=== PATIENT | female | born 1945 | race Hispanic/Latino ===

== ENCOUNTER 2018-12-02 09:14 | Inpatient (IN) | payer MEDICARE, BC ==
--- NOTE | 2018-12-02 09:56 | ED PDOC ---
Arrival/HPI - General Chief Complaint: Lower Extremity Problem/Injury Historian: Patient - History of Present Illness Narrative History of Present Illness (Text): 12/02/18 09:55 73 y/o female, pmh including htn/hld/dm/duodenal ulcer, allergic to nifidipine, c/o lt knee pain and lt. knee swelling x 2 days with on fall or trauma. Aching pain, scheduled for endoscopy so told not take any nsaids, associated with swelling, no fall or trauma, no numbness or tingling, no dizziness, no change in vision, no rash, no other medical or psychological complaints. Past Medical History - Provider Review Nursing Documentation Reviewed: Yes - Cardiac Hx Hypertension: Yes - Endocrine/Metabolic Hx Diabetes Mellitus Type 2: Yes - Gastrointestinal Hx Colitis: Yes - Psychiatric Hx Substance Use: No - Surgical History Hx Cholecystectomy: Yes Hx Hysterectomy: Yes (partial) Hx Parathyroidectomy: Yes Hx Tonsillectomy: Yes - Anesthesia Hx Anesthesia: Yes Hx Anesthesia Reactions: No Hx Malignant Hyperthermia: No Family/Social History - Physician Review Nursing Documentation Reviewed: Yes Family/Social History: Unknown Family HX Smoking Status: Never Smoked Hx Alcohol Use: No Hx Substance Use: No Allergies/Home Meds Allergies/Adverse Reactions: Allergies nifedipine [From Procardia] Adverse Reaction (Verified 12/02/18 09:50) VOMITING Review of Systems - Review of Systems Constitutional: absent: Fatigue, Fevers Eyes: absent: Vision Changes Respiratory: absent: SOB, Cough Cardiovascular: absent: Chest Pain Gastrointestinal: absent: Abdominal Pain, Diarrhea, Nausea, Vomiting, Food Intolerance Musculoskeletal: Arthralgias, Joint Swelling. absent: Back Pain, Neck Pain, Myalgias Skin: absent: Rash, Pruritis Neurological: absent: Headache Hemo/Lymphatic: absent: Adenopathy Psychiatric: absent: Anxiety, Depression, Suicidal Ideation Physical Exam Vital Signs Reviewed: Yes Vital Signs Temp Pulse Resp BP Pulse Ox 12/02/18 09:14 98.4 F 78 18 136/94 H 98 Temperature: Afebrile Blood Pressure: Normal Pulse: Regular Respiratory Rate: Normal Appearance: Positive for: Well-Appearing, Non-Toxic Pain Distress: Severe Mental Status: Positive for: Alert and Oriented X 3 - Systems Exam Head: Present: Atraumatic, Normocephalic Pupils: Present: PERRL Extroacular Muscles: Present: EOMI Conjunctiva: Present: Normal Mouth: Present: Moist Mucous Membranes Neck: Present: Normal Range of Motion Respiratory/Chest: Present: Clear to Auscultation, Good Air Exchange. No: Respiratory Distress, Accessory Muscle Use Cardiovascular: Present: Regular Rate and Rhythm, Normal S1, S2. No: Murmurs Abdomen: No: Tenderness, Distention, Peritoneal Signs Back: Present: Normal Inspection Upper Extremity: Present: Normal Inspection. No: Cyanosis, Edema Lower Extremity: Present: Normal Inspection, Other (Lt. knee: moderate swelling, no tenderness, FROM without limitation but there is painful movement, no erythematous/cellulitis, no streaking, no ulcers, no skin breaking, negative peri and forte signs, +DPPT pulses, capillary refill< 2 seconds, neurovascular intact. ). No: Edema Neurological: Present: GCS=15, CN II-XII Intact, Speech Normal, Motor Func Grossly Intact, Gait Normal, Memory Normal Skin: Present: Warm, Dry, Normal Color. No: Rashes Psychiatric: Present: Alert, Oriented x 3, Normal Insight, Normal Concentration Medical Decision Making ED Course and Treatment: 12/02/18 09:56 Inflammatory joint disease/osteoarthirtis vs. fracture/dislocation vs. DVT -Lt. knee xray -Pain med -Observe and reassess 12/02/18 13:17 -Lt knee xray: There is joint space narrowing in the medial compartment. Meniscal calcifications are seen consistent with chondrocalcinosis. Severe degenerative changes are seen in the patellofemoral joint. -LLE Venuous doppler: as per preliminary report, no acute DVT -Labs show no acute findings -MG 1.4, MgSulfate ordered -ESR 99 -Uric acid within normal limit -Pt. still having significant pain and unable to walk and stand, no one able to take care of her as the is old, possibly needs rehab? -Pt. request orthopedic Dr. Galarza, routine consult ordered for him. -Discussed with the patient about this lab and radiology result. 12/02/18 13:40 -I discussed with Dr. Estrella as the pmd is Dr. Louie, discussed about the case/labs/radiology results, agreed on the admission. - Lab Interpretations I have reviewed the lab results: Yes - RAD Interpretation Radiology Orders: 12/02/18 09:55 KNEE WITH PATELLA LEFT 3 VIEW [RAD] Stat Lt. knee xray: Date of service: 12/02/2018 PROCEDURE: Left Knee Radiographs. HISTORY: Pain. COMPARISON: None. FINDINGS: BONES: Normal. No fracture. JOINTS: There is joint space narrowing in the medial compartment. Meniscal calcifications are seen consistent with chondrocalcinosis. Severe degenerative changes are seen in the patellofemoral joint. JOINT EFFUSION: Small joint effusion OTHER FINDINGS: None. IMPRESSION: There is joint space narrowing in the medial compartment. Meniscal calcifications are seen consistent with chondrocalcinosis. Severe degenerative changes are seen in the patellofemoral joint. LLE Venuous Doppler: as per preliminary report, no acute DVT PROCEDURE: Left lower extremity venous US HISTORY: Leg pain and swelling. Evaluate for DVT. PHYSICIAN(S): Julian Henderson MD. TECHNIQUE: Duplex sonography and color-flow Doppler with graded compression were used to evaluate the deep venous system of the left lower extremity. The exam is somewhat limited by edema FINDINGS: The visualized deep venous system of the left lower extremity is sonographically normal and compressible. Normal wave forms and augmentation are seen. There is no sonographic evidence for deep venous thrombosis in the visualized segments of the left lower extremity. IMPRESSION: 1. No sonographic evidence for deep venous thrombosis in the visualized segments of the left lower extremity. 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 Disposition/Present on Arrival - Present on Arrival Any Indicators Present on Arrival: No History of DVT/PE: No History of Uncontrolled Diabetes: No Urinary Catheter: No History of Decub. Ulcer: No History Surgical Site Infection Following: None - Disposition Have Diagnosis and Disposition been Completed?: Yes Diagnosis: Intractable pain, Knee swelling, Hypomagnesemia, Risk for falls Disposition: HOSPITALIZED Disposition Time: 12:59 Patient Plan: Admission, Observation Patient Problems: Current Active Problems Problem Status Onset Intractable pain Acute Knee swelling Acute Hypomagnesemia Acute Risk for falls Acute Condition: STABLE
[2018-12-02] MEDS ORDERED: Morphine 4 mg/ml ISec IVP STA (10:59)
[2018-12-02 11:29] LABS: EOS % 0.2 % (1.5-5.0); GRAN # 5.42 (1.4-6.5); HEMOGLOBIN 11.9 g/dL (12.0-16.0); LYMPH # 0.5 (1.2-3.4); LYMPH % 7.1 % (22.0-35.0); MEAN CELL VOLUME 104.7 fl (80.0-105.0); MEAN CORPUSCULAR HEMOGLOBIN 35.2 pg (25.0-35.0); MEAN CORPUSCULAR HGB CONC 33.6 g/dl (31.0-37.0); MEAN PLATELET VOLUME 10.1 fl (7.0-11.0); MONO # 0.5 (0.1-0.6); MONO % 7.7 % (1.0-6.0); RBC 3.38 10^6/uL (3.5-6.1); RED CELL DISTRIBUTION WIDTH 14.6 % (11.5-14.5); WHITE BLOOD COUNT 6.4 10^3/uL (4.5-11.0)
[2018-12-02 12:07] LABS: ALB/GLOB RATIO 1.3 (1.1-1.8); ALBUMIN 4.4 g/dL (3.0-4.8); ALT/SGPT 50 U/L (7-56); AST/SGOT 37 U/L (14-36); BLOOD UREA NITROGEN 14 mg/dL (7-21); GFR NON-AFRICAN AMERICAN > 60; URIC ACID 4.5 mg/dL (2.5-6.2)
[2018-12-02] MEDS ORDERED: Magnesium Sulfate 2 gm/50 ml 2 GM/50 ML BAG IVPB ONE (12:19)
--- NOTE | 2018-12-02 13:33 | RAD ---
Date of service: 12/02/2018 PROCEDURE: Left Knee Radiographs. HISTORY: Pain. COMPARISON: None. FINDINGS: BONES: Normal. No fracture. JOINTS: There is joint space narrowing in the medial compartment. Meniscal calcifications are seen consistent with chondrocalcinosis. Severe degenerative changes are seen in the patellofemoral joint. JOINT EFFUSION: Small joint effusion OTHER FINDINGS: None. IMPRESSION: There is joint space narrowing in the medial compartment. Meniscal calcifications are seen consistent with chondrocalcinosis. Severe degenerative changes are seen in the patellofemoral joint.
--- NOTE | 2018-12-02 14:38 | CP.PCM.HP ---
<All Pulliam - Last Filed: 12/02/18 15:15> History of Present Illness - History of Present Illness History of Present Illness: All Pulliam DO, PGY-2: Hospitalist HPI for Dr. Estrella 73 year old female with a past medical history of hypertension, UC, dyslipidemia, glaucoma, DM, and peptic ulcer disease who presents with 5 days of progressively worsening left knee pain with swelling and inability to ambulate as of today. Patient reports no fever, chills, nausea, vomiting, rash, or other joint pain. She denies any trauma, change in medication, recent alcohol use, or prolonged travel, rash. She reports never having a joint attack this bad. She also denies any recent travel or contact with anyone sick. She had a upper endoscopy this Thursday that showed improvement in her peptic ulcers. Otherwise, 12 point of ROS is negative. 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 Manuel Louie Present on Admission - Present on Admission Any Indicators Present on Admission: No Review of Systems - Review of Systems All systems: reviewed and no additional remarkable complaints except (as per HPI) Past Patient History - Past Social History Smoking Status: Never Smoked - CARDIAC Hx Hypertension: Yes - ENDOCRINE/METABOLIC Hx Diabetes Mellitus Type 2: Yes - GASTROINTESTINAL Hx Colitis: Yes - PSYCHIATRIC Hx Substance Use: No - SURGICAL HISTORY Hx Cholecystectomy: Yes Hx Hysterectomy: Yes (partial) Hx Parathyroidectomy: Yes Hx Tonsillectomy: Yes - ANESTHESIA Hx Anesthesia: Yes Hx Anesthesia Reactions: No Hx Malignant Hyperthermia: No Meds Allergies/Adverse Reactions: Allergies Allergy/AdvReac Type Severity Reaction Status Date / Time nifedipine [From Procardia] AdvReac VOMITING Verified 12/02/18 09:50 Physical Exam - Constitutional Appears: Well, Non-toxic - Head Exam Head Exam: ATRAUMATIC, NORMOCEPHALIC - Eye Exam Eye Exam: EOMI, Normal appearance - ENT Exam ENT Exam: Mucous Membranes Dry, Normal Oropharynx - Neck Exam Neck exam: Positive for: Normal Inspection - Respiratory Exam Respiratory Exam: Clear to Auscultation Bilateral, NORMAL BREATHING PATTERN. absent: Accessory Muscle Use - Cardiovascular Exam Cardiovascular Exam: RRR, +S1, +S2 - GI/Abdominal Exam GI & Abdominal Exam: Normal Bowel Sounds, Soft. absent: Guarding, Rebound - Extremities Exam Extremities exam: Negative for: calf tenderness Additional comments: left knee swollen medially, though more tender on lateral aspect, warm; no ecchymosis or evidence of trauma - Neurological Exam Neurological exam: Alert, CN II-XII Intact, Oriented x3 - Psychiatric Exam Psychiatric exam: Normal Affect, Normal Mood - Skin Skin Exam: Dry, Intact, Normal Color, Warm Results - Vital Signs Recent Vital Signs: Last Vital Signs Temp 98.4 F 12/02/18 09:14 Pulse 78 12/02/18 09:14 Resp 18 12/02/18 09:14 BP 136/94 H 12/02/18 09:14 Pulse Ox 98 12/02/18 09:14 - Labs Result Diagrams: 12/02/18 11:10 12/02/18 11:40 Labs: Laboratory Results - last 24 hr 12/02/18 12/02/18 11:10 11:40 WBC 6.4 RBC 3.38 L Hgb 11.9 L Hct 35.4 L MCV 104.7 MCH 35.2 H MCHC 33.6 RDW 14.6 H Plt Count 311 MPV 10.1 Gran % 85.0 H Lymph % (Auto) 7.1 L Mercer % (Auto) 7.7 H Eos % (Auto) 0.2 L Baso % (Auto) 0.0 Gran # 5.42 Lymph # (Auto) 0.5 L Mercer # (Auto) 0.5 Eos # (Auto) 0.0 Baso # (Auto) 0.00 ESR 99 H Sodium 136 Potassium 3.6 Chloride 97 L Carbon Dioxide 25 Anion Gap 17 BUN 14 Creatinine 0.8 Est GFR ( Amer) > 60 Est GFR (Non-Af Amer) > 60 Random Glucose 192 H Uric Acid 4.5 Calcium 10.0 Magnesium 1.4 L Total Bilirubin 0.8 AST 37 H ALT 50 Alkaline Phosphatase 48 Total Protein 7.8 Albumin 4.4 Globulin 3.4 Albumin/Globulin Ratio 1.3 Assessment & Plan - Assessment and Plan (Free Text) Assessment: 73 year old female with a past medical history of hypertension, UC, dyslipidemia, glaucoma, DM, and peptic ulcer disease who presents with 5 days of progressively worsening left knee pain with swelling and inability to ambulate as of today. 1) Left knee pain and swelling- monarticular arthritis - 3 view radiograph shows there is joint space narrowing in the medial compartment. Meniscal calcifications are seen consistent with chondrocalcinosis. Severe degenerative changes are seen in the patellofemoral joint. - Joint aspiration should be performed - Orthopedic was consulted by ED - Morphine 2 mg q4h PRN for severe pain - Physical Therapy - US of lower extremity performed, interpretation pending 2) DM II - ISS lispro (low) with fingerstick BG ACHS - holding metformin and glimeperide 3) Ulcerative Colitis - Continue with home meds 4) Peptic Ulcer Disease - Protonix 40 mg IVP 5) Dyslipidemia - Atorvastatin 20 DIN 6) Glaucoma - Timolol OU 7) DVT/GI - Lovenox 40 mg SC - Protoniix Case was reviewed and discussed with attending physician, Dr. Estrella - Date & Time Date: 12/02/18 Time: 15:14 <Ana Estrella - Last Filed: 12/03/18 08:51> Results - Vital Signs Recent Vital Signs: Last Vital Signs Temp 98.6 F 12/03/18 06:00 Pulse 75 12/03/18 06:00 Resp 18 12/03/18 06:00 BP 158/68 H 12/03/18 06:00 Pulse Ox 93 L 12/03/18 06:00 - Labs Result Diagrams: 12/03/18 07:30 12/03/18 07:30 Labs: Laboratory Results - last 24 hr 12/02/18 12/02/18 12/02/18 11:10 11:40 20:08 WBC 6.4 RBC 3.38 L Hgb 11.9 L Hct 35.4 L MCV 104.7 MCH 35.2 H MCHC 33.6 RDW 14.6 H Plt Count 311 MPV 10.1 Gran % 85.0 H Lymph % (Auto) 7.1 L Mercer % (Auto) 7.7 H Eos % (Auto) 0.2 L Baso % (Auto) 0.0 Gran # 5.42 Lymph # (Auto) 0.5 L Mercer # (Auto) 0.5 Eos # (Auto) 0.0 Baso # (Auto) 0.00 ESR 99 H Sodium 136 Potassium 3.6 Chloride 97 L Carbon Dioxide 25 Anion Gap 17 BUN 14 Creatinine 0.8 Est GFR ( Amer) > 60 Est GFR (Non-Af Amer) > 60 POC Glucose (mg/dL) 184 H Random Glucose 192 H Uric Acid 4.5 Calcium 10.0 Magnesium 1.4 L Total Bilirubin 0.8 AST 37 H ALT 50 Alkaline Phosphatase 48 Total Protein 7.8 Albumin 4.4 Globulin 3.4 Albumin/Globulin Ratio 1.3 12/03/18 12/03/18 12/03/18 06:25 07:30 07:30 WBC 6.0 RBC 3.18 L Hgb 10.9 L Hct 33.1 L MCV 104.1 MCH 34.3 MCHC 32.9 RDW 14.8 H Plt Count 338 MPV 9.7 Gran % 80.3 H Lymph % (Auto) 9.1 L Mercer % (Auto) 9.9 H Eos % (Auto) 0.7 L Baso % (Auto) 0.0 Gran # 4.85 Lymph # (Auto) 0.6 L Mercer # (Auto) 0.6 Eos # (Auto) 0.0 Baso # (Auto) 0.00 ESR Sodium 136 Potassium 3.7 Chloride 95 L Carbon Dioxide 29 Anion Gap 16 BUN 15 Creatinine 0.9 Est GFR ( Amer) > 60 Est GFR (Non-Af Amer) > 60 POC Glucose (mg/dL) 161 H Random Glucose 168 H Uric Acid Calcium 10.1 Magnesium 2.1 Total Bilirubin 0.6 AST 35 ALT 36 Alkaline Phosphatase 48 Total Protein 7.6 Albumin 4.1 Globulin 3.4 Albumin/Globulin Ratio 1.2 Attending/Attestation - Attestation I have personally seen and examined this patient.: Yes I have fully participated in the care of the patient.: Yes I have reviewed all pertinent clinical information: Yes Notes (Text): 12/02/18 73 year old female with past medical history of hypertension, ulcerative colitis, dyslipidemia, diabetes and PUD who presents with complaint of left knee pain and swelling. Xray showed joint space narrowing in the medial compartment, meniscal calcifications consistent with chondrocalcinosis, and severe degenerative changes in the patellofemoral joint. Orthopedics and PT evaluation are requested. Continue with morphine prn for pain. Ana Estrella MD Hospitalist.
[2018-12-02] MEDS: Morphine 2 mg/ml ISec IVP PRN ×2 (15:44→21:16)
[2018-12-02] MEDS ORDERED: Lidocaine 1% 5ml Abboject ONE (15:55)
[2018-12-02] MEDS ORDERED: Triamcinolone Acetonide 40 mg/mL Inj IU ONE (15:56)
--- NOTE | 2018-12-02 16:10 | US ---
PROCEDURE: Left lower extremity venous US HISTORY: Leg pain and swelling. Evaluate for DVT. PHYSICIAN(S): Julian Henderson MD. TECHNIQUE: Duplex sonography and color-flow Doppler with graded compression were used to evaluate the deep venous system of the left lower extremity. The exam is somewhat limited by edema FINDINGS: The visualized deep venous system of the left lower extremity is sonographically normal and compressible. Normal wave forms and augmentation are seen. There is no sonographic evidence for deep venous thrombosis in the visualized segments of the left lower extremity. IMPRESSION: 1. No sonographic evidence for deep venous thrombosis in the visualized segments of the left lower extremity.
[2018-12-02] MEDS: Insulin Lispro (humaLOG) LOW Coverage SC SCH (21:31)
[2018-12-02 22:55] VITALS: BMI 28.3
[2018-12-02] MEDS ORDERED: Influenza Vaccine 60 mcg/0.5 mL SYR (4YR UP) IM ONE (22:55)
[2018-12-02] MEDS ORDERED: Pneumococcal 23-Valent Vaccine IM ONE (22:55)
[2018-12-03] MEDS: Morphine 2 mg/ml ISec IVP PRN (05:37)
[2018-12-03 07:41] LABS: EOS % 0.7 % (1.5-5.0); GRAN # 4.85 (1.4-6.5); GRAN % 80.3 % (50.0-68.0); HEMOGLOBIN 10.9 g/dL (12.0-16.0); LYMPH # 0.6 (1.2-3.4); LYMPH % 9.1 % (22.0-35.0); MEAN CELL VOLUME 104.1 fl (80.0-105.0); MEAN CORPUSCULAR HEMOGLOBIN 34.3 pg (25.0-35.0); MEAN CORPUSCULAR HGB CONC 32.9 g/dl (31.0-37.0); MEAN PLATELET VOLUME 9.7 fl (7.0-11.0); MONO # 0.6 (0.1-0.6); MONO % 9.9 % (1.0-6.0); RBC 3.18 10^6/uL (3.5-6.1); RED CELL DISTRIBUTION WIDTH 14.8 % (11.5-14.5)
[2018-12-03 08:06] LABS: ALB/GLOB RATIO 1.2 (1.1-1.8); ALBUMIN 4.1 g/dL (3.0-4.8); ALT/SGPT 36 U/L (7-56); AST/SGOT 35 U/L (14-36); BLOOD UREA NITROGEN 15 mg/dL (7-21); CALCIUM 10.1 mg/dL (8.4-10.5); GFR NON-AFRICAN AMERICAN > 60
[2018-12-03] MEDS ORDERED: Triamcinolone Acetonide 40 mg/mL Inj IJ ONE (08:34)
[2018-12-03] MEDS ORDERED: Bupivacaine 0.5% Inj(30mL) IJ ONE (08:36)
[2018-12-03] MEDS: Insulin Lispro (humaLOG) LOW Coverage SC SCH ×4 (08:52→21:49)
[2018-12-03] MEDS: Multivitamin Vitamin B Complex (Nephro-Vite) Tab PO SCH (08:52)
[2018-12-03] MEDS: Mesalamine 800 mg DR Tab PO SCH ×3 (09:38→17:09)
[2018-12-03] MEDS: Morphine 4 mg/ml ISec IVP PRN ×2 (12:52→19:14)
--- NOTE | 2018-12-03 15:07 | CP.PCM.PN ---
<Alcon Olivarez - Last Filed: 12/03/18 18:08> Subjective - Date & Time of Evaluation Date of Evaluation: 12/03/18 Time of Evaluation: 18:08 - Subjective Subjective: Alcon Olivarez, PGY-1 Medicine Progress Note for Dr. Estrella: Pt was seen and examined this AM at bedside. Pt states that she has continued L knee pain but that the swelling has reduced. Pt was given intraarticular steroid injection and will have arthrocentesis done by ortho today. Pt states that besides continued L knee pain she has no acute complaints at this time and denies fevers, chillls, headache, chest pain, palpitations, SOB, cough, abd pain, n/v, c/d, or dysuria. Objective - Vital Signs/Intake and Output Vital Signs (last 24 hours): Temp Pulse Resp BP Pulse Ox 98.6 F 75 18 158/68 H 93 L 12/03/18 06:00 12/03/18 09:39 12/03/18 06:00 12/03/18 09:40 12/03/18 06:00 Intake and Output: 12/03/18 12/03/18 06:59 18:59 Intake Total 120 Balance 120 - Medications Medications: Current Medications Amlodipine Besylate (Norvasc) 10 mg PO DAILY [facility] Last Admin: 12/03/18 09:40 Dose: 10 mg Atorvastatin Calcium (Lipitor) 20 mg PO DIN [facility] Last Admin: 12/02/18 20:24 Dose: Not Given Carvedilol (Coreg) 25 mg PO BID [facility] Last Admin: 12/03/18 09:39 Dose: 25 mg Enoxaparin Sodium (Lovenox) 40 mg SC DAILY [facility]; Protocol Folic Acid (Folic Acid) 1 mg PO DAILY [facility] Last Admin: 12/03/18 09:41 Dose: 1 mg Insulin Human Lispro (Humalog Low) 0 units SC ACHS [facility]; Protocol Last Admin: 12/03/18 12:46 Dose: 1 unit Losartan Potassium (Cozaar) 100 mg PO DAILY [facility] Last Admin: 12/03/18 09:40 Dose: 100 mg Mercaptopurine (6-Mp) 100 mg PO DAILY [facility] Last Admin: 12/03/18 09:39 Dose: 100 mg Mesalamine (Asacol Hd 800mg) 1,600 mg PO TID [facility] Last Admin: 12/03/18 09:38 Dose: 1,600 mg Morphine Sulfate (Morphine) 4 mg IVP Q6H PRN PRN Reason: Pain, severe (8-10) Last Admin: 12/03/18 12:52 Dose: 4 mg Ondansetron HCl (Zofran Inj) 4 mg IVP Q6H PRN PRN Reason: Nausea/Vomiting Last Admin: 12/02/18 15:45 Dose: 4 mg Pantoprazole Sodium (Protonix Inj) 40 mg IVP DAILY [facility] Last Admin: 12/03/18 09:41 Dose: 40 mg Timolol Maleate (Timoptic 0.5% Ophth Soln) 0 drop OU BID [facility] Last Admin: 12/03/18 10:23 Dose: 1 drop Torsemide (Demadex) 10 mg PO DAILY [facility] Last Admin: 12/03/18 09:41 Dose: 10 mg Vitamin B Complex/Vit C/Folic Acid (Nephro-Jimmy) 1 tab PO 0800 [facility] Last Admin: 12/03/18 08:52 Dose: 1 tab - Labs Labs: 12/03/18 07:30 12/03/18 07:30 - Constitutional Appears: Non-toxic, No Acute Distress - Head Exam Head Exam: ATRAUMATIC, NORMAL INSPECTION, NORMOCEPHALIC - Eye Exam Eye Exam: EOMI, Normal appearance, PERRL - Respiratory Exam Respiratory Exam: Clear to Ausculation Bilateral, NORMAL BREATHING PATTERN. absent: Accessory Muscle Use, Rales, Rhonchi, Wheezes, Respiratory Distress - Cardiovascular Exam Cardiovascular Exam: RRR, +S1, +S2. absent: Gallop, Rubs - GI/Abdominal Exam GI & Abdominal Exam: Soft, Normal Bowel Sounds. absent: Distended, Firm, Guarding, Tenderness - Extremities Exam Additional comments: L knee is less swollen than previous, but continues to be warm without erythema. Pts L knee ROM is limited due to pain. - Back Exam Back Exam: NORMAL INSPECTION. absent: CVA tenderness (L), CVA tenderness (R) - Psychiatric Exam Psychiatric exam: Normal Affect, Normal Mood - Skin Skin Exam: Dry, Normal Color, Warm Assessment and Plan - Assessment and Plan (Free Text) Assessment: 73 year old female with a past medical history of hypertension, UC, dyslipidemia, glaucoma, DM, and peptic ulcer disease who presents with 5 days of progressively worsening left knee pain with swelling and inability to ambulate as of today. Will be going for joint aspiration today per ortho. Plan: 1) Left knee pain and swelling- monarticular arthritis - 3 view radiograph shows there is joint space narrowing in the medial compartment. Meniscal calcifications are seen consistent with chondrocalcinosis. Severe degenerative changes are seen in the patellofemoral joint. - Joint aspiration will be performed by ortho - Morphine 4 mg q4h PRN for severe pain - PT - TCU - US of lower extremity performed, Negative for DVT 2) DM II - ISS lispro (low) with fingerstick BG ACHS - holding metformin and glimeperide 3) Ulcerative Colitis - Continue with home meds 4) Peptic Ulcer Disease - Protonix 40 mg PO 5) Dyslipidemia - Atorvastatin 20 DIN 6) Glaucoma - Timolol OU PPX: DVT: Lovenox 40 mg SC GI: Protonix Case was reviewed and discussed with attending physician, Dr. Estrella <Ana Estrella - Last Filed: 12/04/18 08:17> Objective - Vital Signs/Intake and Output Vital Signs (last 24 hours): Temp Pulse Resp BP Pulse Ox 98.6 F 80 18 130/66 93 L 12/03/18 06:00 12/03/18 17:12 12/03/18 06:00 12/03/18 17:12 12/03/18 06:00 - Medications Medications: Current Medications Amlodipine Besylate (Norvasc) 10 mg PO DAILY [facility] Last Admin: 12/03/18 09:40 Dose: 10 mg Atorvastatin Calcium (Lipitor) 20 mg PO DIN [facility] Last Admin: 12/03/18 17:12 Dose: 20 mg Carvedilol (Coreg) 25 mg PO BID [facility] Last Admin: 12/03/18 17:12 Dose: 25 mg Enoxaparin Sodium (Lovenox) 40 mg SC DAILY [facility]; Protocol Last Admin: 12/03/18 17:16 Dose: 40 mg Folic Acid (Folic Acid) 1 mg PO DAILY [facility] Last Admin: 12/03/18 09:41 Dose: 1 mg Insulin Human Lispro (Humalog Low) 0 units SC ACHS [facility]; Protocol Last Admin: 12/04/18 08:12 Dose: 1 unit Losartan Potassium (Cozaar) 100 mg PO DAILY [facility] Last Admin: 12/03/18 09:40 Dose: 100 mg Mercaptopurine (6-Mp) 100 mg PO DAILY [facility] Last Admin: 12/03/18 09:39 Dose: 100 mg Mesalamine (Asacol Hd 800mg) 1,600 mg PO TID [facility] Last Admin: 12/03/18 17:09 Dose: 1,600 mg Morphine Sulfate (Morphine) 4 mg IVP Q6H PRN PRN Reason: Pain, severe (8-10) Last Admin: 12/04/18 01:45 Dose: 4 mg Ondansetron HCl (Zofran Inj) 4 mg IVP Q6H PRN PRN Reason: Nausea/Vomiting Last Admin: 12/02/18 15:45 Dose: 4 mg Pantoprazole Sodium (Protonix Ec Tab) 40 mg PO ACB [facility] Last Admin: 12/04/18 08:12 Dose: 40 mg Timolol Maleate (Timoptic 0.5% Ophth Soln) 0 drop OU BID [facility] Last Admin: 12/03/18 17:15 Dose: 1 drop Torsemide (Demadex) 10 mg PO DAILY [facility] Last Admin: 12/03/18 09:41 Dose: 10 mg Vitamin B Complex/Vit C/Folic Acid (Nephro-Jimmy) 1 tab PO 0800 [facility] Last Admin: 12/03/18 08:52 Dose: 1 tab - Labs Labs: 12/04/18 06:00 12/04/18 06:00 Attending/Attestation - Attestation I have personally seen and examined this patient.: Yes I have fully participated in the care of the patient.: Yes I have reviewed all pertinent clinical information, including history, physical exam and plan: Yes Notes (Text): 12/03/18 73 year old female with past medical history of hypertension, ulcerative colitis, dyslipidemia, diabetes and PUD who presented with complaint of left knee pain and swelling. Xray showed joint space narrowing in the medial compartment, meniscal calcifications consistent with chondrocalcinosis, and severe degenerative changes in the patellofemoral joint. LE doppler was negative. Orthopedics evaluation was appreciated. Patient is s/p joint aspiration; will follow up on studies. Continue with morphine prn for pain. PT evaluation was appreciated who is recommending TCU. Ana Estrella MD Hospitalist.
--- NOTE | 2018-12-03 15:36 | CON ---
DATE: 12/03/2018 INPATIENT CONSULTATION REASON FOR CONSULTATION: Left knee pain and swelling. Consult is as follows. HISTORY OF PRESENT ILLNESS: This is a 73-year-old female who presented to the emergency room yesterday with complaints of left knee pain and swelling. The patient denies any history of trauma. She says she has not had any recent knee pain; did have an episode of knee pain approximately 10 years ago. In the emergency room, an attempt for an aspiration was done which she said was unsuccessful and she was injected with 20 mg of steroid. She says the swelling has gone somewhat better today but still having complaint and difficulty with ambulation. The patient denies any histories of fever or chills. PHYSICAL EXAMINATION: GENERAL: This is a female in no apparent distress. She is awake, alert and oriented x3. She is afebrile. EXTREMITIES: Evaluation of the left knee shows she has an obvious knee effusion. She has pain with range of motion of the knee actively and passively. No gross crepitus is appreciated. She has both medial and lateral joint line tenderness to palpation. Her thigh and calf are soft and nontender. Neurovascularly, she is intact. Her left knee was prepped sterilely and approximately 36 mL of fluid was aspirated. The fluid appeared to be serous, did not appear to be purulent and once the fluid was aspirated, this was sent off for cultures, cell count, Gram stain and crystals. The knee was then injected with 20 mg of Kenalog with 2 mL of Marcaine. She tolerated the procedure well. DIAGNOSTIC DATA: X-rays of the left knee show no acute fracture dislocations but severe tricompartmental degenerative changes. PLAN: At this point, we are going to await the results of the fluid analysis. For now, we will let her do range of motion and weight-bear as tolerated. We will follow while she is in the hospital. Hever Pathak MD
[2018-12-03] MEDS: Enoxaparin 40 mg Syringe SC SCH (17:16)
[2018-12-03 17:56] LABS: FLUID TYPE SYNOVIAL FLUID
[2018-12-03 18:29] LABS: SF GROSS APPEARANCE CLOUDY (CLEAR); SYNOVIAL FLUID COMMENT YELLOW
[2018-12-04] MEDS: Morphine 4 mg/ml ISec IVP PRN ×2 (01:45→10:51)
[2018-12-04 06:47] LABS: GRAN # 5.49 (1.4-6.5); GRAN % 88.7 % (50.0-68.0); HEMOGLOBIN 10.2 g/dL (12.0-16.0); LYMPH # 0.4 (1.2-3.4); LYMPH % 5.8 % (22.0-35.0); MEAN CELL VOLUME 105.2 fl (80.0-105.0); MEAN CORPUSCULAR HEMOGLOBIN 35.3 pg (25.0-35.0); MEAN CORPUSCULAR HGB CONC 33.6 g/dl (31.0-37.0); MEAN PLATELET VOLUME 10.1 fl (7.0-11.0); MONO # 0.3 (0.1-0.6); MONO % 5.5 % (1.0-6.0); RBC 2.89 10^6/uL (3.5-6.1); RED CELL DISTRIBUTION WIDTH 14.8 % (11.5-14.5); WHITE BLOOD COUNT 6.2 10^3/uL (4.5-11.0)
[2018-12-04 08:09] LABS: ALB/GLOB RATIO 1.1 (1.1-1.8); ALBUMIN 3.9 g/dL (3.0-4.8); CALCIUM 9.5 mg/dL (8.4-10.5)
[2018-12-04] MEDS: Insulin Lispro (humaLOG) LOW Coverage SC SCH ×4 (08:12→22:00)
[2018-12-04] MEDS: Pantoprazole 40 mg EC Tab PO SCH (08:12)
[2018-12-04] MEDS: Mesalamine 800 mg DR Tab PO SCH ×3 (09:16→17:30)
[2018-12-04] MEDS: Multivitamin Vitamin B Complex (Nephro-Vite) Tab PO SCH (09:35)
[2018-12-04] MEDS: Enoxaparin 40 mg Syringe SC SCH (10:51)
--- NOTE | 2018-12-04 13:40 | CP.PCM.DIS ---
Provider - Provider Date of Admission: 12/02/18 13:37 Attending physician: Ana Estrella MD Primary care physician: Dr. Louie Consults: 12/02/18 13:25 Orthopedic Consult Routine Comment: lt. knee swelling/pain, unable to stand or walk Consulting Provider: Hever Pathak Consulting Physician: Hever Pathak Reason for Consult: lt. knee swelling/pain, unable to stand or walk 12/03/18 14:11 TCU [Evaluation for TRCU] Routine Comment: Physician Instructions: Reason For Exam: rehab Time Spent in preparation of Discharge (in minutes): 40 Hospital Course - Lab Results Lab Results: Micro Results 12/03/18 18:00 Knee - Right Gram Stain - Final 12/03/18 18:00 Knee - Right Wound Culture - Preliminary NO GROWTH AFTER 24 HOURS Most Recent Lab Values WBC 6.2 10^3/uL (4.5-11.0) 12/04/18 06:00 RBC 2.89 10^6/uL (3.5-6.1) L 12/04/18 06:00 Hgb 10.2 g/dL (12.0-16.0) L 12/04/18 06:00 Hct 30.4 % (36.0-48.0) L 12/04/18 06:00 MCV 105.2 fl (80.0-105.0) H 12/04/18 06:00 MCH 35.3 pg (25.0-35.0) H 12/04/18 06:00 MCHC 33.6 g/dl (31.0-37.0) 12/04/18 06:00 RDW 14.8 % (11.5-14.5) H 12/04/18 06:00 Plt Count 344 10^3/uL (120.0-450.0) 12/04/18 06:00 MPV 10.1 fl (7.0-11.0) 12/04/18 06:00 Gran % 88.7 % (50.0-68.0) H 12/04/18 06:00 Lymph % (Auto) 5.8 % (22.0-35.0) L 12/04/18 06:00 Branch % (Auto) 5.5 % (1.0-6.0) 12/04/18 06:00 Eos % (Auto) 0.0 % (1.5-5.0) L 12/04/18 06:00 Baso % (Auto) 0.0 % (0.0-3.0) 12/04/18 06:00 Gran # 5.49 (1.4-6.5) 12/04/18 06:00 Lymph # (Auto) 0.4 (1.2-3.4) L 12/04/18 06:00 Branch # (Auto) 0.3 (0.1-0.6) 12/04/18 06:00 Eos # (Auto) 0.0 (0.0-0.7) 12/04/18 06:00 Baso # (Auto) 0.00 K/mm3 (0.0-2.0) 12/04/18 06:00 ESR 99 mm/hr (0.0-20.0) H 12/02/18 11:10 Sodium 132 mmol/L (132-148) 12/04/18 06:00 Potassium 4.3 mmol/L (3.6-5.0) 12/04/18 06:00 Chloride 92 mmol/L (98-107) L 12/04/18 06:00 Carbon Dioxide 28 mmol/L (21-33) 12/04/18 06:00 Anion Gap 17 (10-20) 12/04/18 06:00 BUN 32 mg/dL (7-21) H 12/04/18 06:00 Creatinine 1.1 mg/dl (0.7-1.2) 12/04/18 06:00 Est GFR ( Amer) 59 12/04/18 06:00 Est GFR (Non-Af Amer) 48 12/04/18 06:00 POC Glucose (mg/dL) 236 mg/dL (65-110) H 12/04/18 11:57 Random Glucose 187 mg/dL (70-110) H 12/04/18 06:00 Uric Acid 4.5 mg/dL (2.5-6.2) 12/02/18 11:40 Calcium 9.5 mg/dL (8.4-10.5) 12/04/18 06:00 Magnesium 2.3 mg/dL (1.7-2.2) H 12/04/18 06:00 Total Bilirubin 0.7 mg/dL (0.2-1.3) 12/04/18 06:00 AST 36 U/L (14-36) 12/04/18 06:00 ALT 36 U/L (7-56) 12/04/18 06:00 Alkaline Phosphatase 43 U/L (38-126) 12/04/18 06:00 Total Protein 7.5 g/dL (5.8-8.3) 12/04/18 06:00 Albumin 3.9 g/dL (3.0-4.8) 12/04/18 06:00 Globulin 3.6 gm/dL 12/04/18 06:00 Albumin/Globulin Ratio 1.1 (1.1-1.8) 12/04/18 06:00 Fluid Type Synovial fluid 12/03/18 17:54 Synovial WBC 89037.0 /uL (0.0-150.0) H 12/03/18 17:54 Synovial RBC 101.0 /uL (0.0-0.0) H 12/03/18 17:54 Synovial Mononuclear 7.6 % (0-0) H 12/03/18 17:54 Synov Polymorphonuclear 92.4 % (0-0) H 12/03/18 17:54 Synovial Fluid Comment Yellow 12/03/18 17:54 - Hospital Course Hospital Course: Denys Stewart, PGY-1 Discharge Summary for Hospitalist Service 73 year old female with past medical history of hypertension, ulcerative colitis, dyslipidemia, diabetes and PUD who presented with complaint of left knee pain and swelling. X-ray showed joint space narrowing in the medial compartment, meniscal calcifications consistent with chondrocalcinosis, and severe degenerative changes in the patellofemoral joint. LE doppler was negative. Consent was obtained for joint aspiration and intra-articular steroid injection of the left knee. Knee was sterilized using povidone-iodine. Lateral and medial approach were performed, but no fluid was successfully aspirated. 20 mg of Kenalog along with 2 ml of 2% Lidocaine was administered in the intra- articular space via medial approach. Patient tolerated procedure well with no complications. Orthopedics evaluation was appreciated, which recommended ROM testing and follow up of cytology and fluid analysis, Patient is s/p joint aspiration; will follow up on studies. Continue with morphine prn for pain. PT evaluation initially recommended TCU but then changed recommendation to discharge home. Scripts were provided for walker and Ultram. Patient reports improved pain and increased ROM in L knee joint. No effusion or warmth noted to joint. Patient along with family member at bedside was in agreement with plan for discharge. All questions were answered in detail to patient satisfaction. Patient seen, case reviewed and plan approved by Dr. Estrella. Discharge Exam - Additional Findings Additional findings: - Constitutional Appears: Non-toxic, No Acute Distress - Head Exam Head Exam: ATRAUMATIC, NORMAL INSPECTION, NORMOCEPHALIC - Eye Exam Eye Exam: EOMI, Normal appearance, PERRL - Respiratory Exam Respiratory Exam: Clear to Ausculation Bilateral, NORMAL BREATHING PATTERN. absent: Accessory Muscle Use, Rales, Rhonchi, Wheezes, Respiratory Distress - Cardiovascular Exam Cardiovascular Exam: RRR, +S1, +S2. absent: Gallop, Rubs - GI/Abdominal Exam GI & Abdominal Exam: Soft, Normal Bowel Sounds. absent: Distended, Firm, Guarding, Tenderness - Extremities Exam Additional comments: L knee is less swollen, no warmth or erythema. Pts L knee ROM improved - Back Exam Back Exam: NORMAL INSPECTION. absent: CVA tenderness (L), CVA tenderness (R) - Psychiatric Exam Psychiatric exam: Normal Affect, Normal Mood - Skin Skin Exam: Dry, Normal Color, Warm Discharge Plan - Discharge Medications Prescriptions: Losartan [Cozaar] 100 mg PO DAILY #60 tab Mesalamine [Asacol HD 800mg] 1,600 mg PO TID #21 tcp - Follow Up Plan Condition: STABLE Disposition: HOME/ ROUTINE Instructions: Fatigue (DC), Acute Pain, Adult (DC), Muscle and Bone Pain (DC) Additional Instructions: Please follow up with your PMD Dr. Louie within one week. Please follow up with Dr. Ptahak within 1 week. His # is . Please take all home medications as prescribed. Please stop taking Exforg and Hydrochlorothiazide. You have also been given physical scripts for a rolling walker and Ultram. Please ambulate with assistance and caution. Cytology was performed and results are pending. Should symptoms worsen, please visit nearest emergency department.
--- NOTE | 2018-12-04 14:20 | CP.PCM.PN ---
<Denys Stewart - Last Filed: 12/04/18 14:14> Subjective - Date & Time of Evaluation Date of Evaluation: 12/04/18 Time of Evaluation: 09:00 - Subjective Subjective: Denys Stewart PGY-1 Progress Note for Hospitalist Service Patient was seen and examined at bedside. Pt states that she has improved L knee pain and the swelling has reduced. Pt s/p arthrocentesis performed by ortho. Pt states that besides continued L knee pain, she has no acute complaints at this time and denies fevers, chillls, headache, chest pain, palpitations, SOB, cough, abd pain, n/v, c/d, or dysuria. Objective - Vital Signs/Intake and Output Vital Signs (last 24 hours): Temp Pulse Resp BP Pulse Ox 98.2 F 87 20 136/72 97 12/04/18 06:00 12/04/18 09:17 12/04/18 06:00 12/04/18 09:16 12/04/18 06:00 - Medications Medications: Current Medications Amlodipine Besylate (Norvasc) 10 mg PO DAILY [facility] Last Admin: 12/04/18 09:16 Dose: 10 mg Atorvastatin Calcium (Lipitor) 20 mg PO DIN [facility] Last Admin: 12/03/18 17:12 Dose: 20 mg Carvedilol (Coreg) 25 mg PO BID [facility] Last Admin: 12/04/18 09:17 Dose: 25 mg Enoxaparin Sodium (Lovenox) 40 mg SC DAILY [facility]; Protocol Last Admin: 12/04/18 10:51 Dose: 40 mg Folic Acid (Folic Acid) 1 mg PO DAILY [facility] Last Admin: 12/04/18 09:17 Dose: 1 mg Insulin Human Lispro (Humalog Low) 0 units SC ACHS [facility]; Protocol Last Admin: 12/04/18 12:24 Dose: 2 unit Losartan Potassium (Cozaar) 100 mg PO DAILY [facility] Last Admin: 12/04/18 09:16 Dose: 100 mg Mercaptopurine (6-Mp) 100 mg PO DAILY [facility] Last Admin: 12/04/18 09:33 Dose: 100 mg Mesalamine (Asacol Hd 800mg) 1,600 mg PO TID [facility] Last Admin: 12/04/18 09:16 Dose: 1,600 mg Ondansetron HCl (Zofran Inj) 4 mg IVP Q6H PRN PRN Reason: Nausea/Vomiting Last Admin: 12/02/18 15:45 Dose: 4 mg Pantoprazole Sodium (Protonix Ec Tab) 40 mg PO ACB [facility] Last Admin: 12/04/18 08:12 Dose: 40 mg Timolol Maleate (Timoptic 0.5% Ophth Soln) 0 drop OU BID [facility] Last Admin: 12/04/18 09:18 Dose: 1 drop Torsemide (Demadex) 10 mg PO DAILY [facility] Last Admin: 12/04/18 09:17 Dose: 10 mg Tramadol HCl (Ultram) 50 mg PO TID [facility] Vitamin B Complex/Vit C/Folic Acid (Nephro-Jimmy) 1 tab PO 0800 [facility] Last Admin: 12/04/18 09:35 Dose: 1 tab - Labs Labs: 12/04/18 06:00 12/04/18 06:00 - Additional Findings Additional findings: - Constitutional Appears: Non-toxic, No Acute Distress - Head Exam Head Exam: ATRAUMATIC, NORMAL INSPECTION, NORMOCEPHALIC - Eye Exam Eye Exam: EOMI, Normal appearance, PERRL - Respiratory Exam Respiratory Exam: Clear to Ausculation Bilateral, NORMAL BREATHING PATTERN. absent: Accessory Muscle Use, Rales, Rhonchi, Wheezes, Respiratory Distress - Cardiovascular Exam Cardiovascular Exam: RRR, +S1, +S2. absent: Gallop, Rubs - GI/Abdominal Exam GI & Abdominal Exam: Soft, Normal Bowel Sounds. absent: Distended, Firm, Guarding, Tenderness - Extremities Exam Additional comments: L knee is less swollen than previous, but continues to be warm without erythema. Pts L knee ROM is limited due to pain. - Back Exam Back Exam: NORMAL INSPECTION. absent: CVA tenderness (L), CVA tenderness (R) - Psychiatric Exam Psychiatric exam: Normal Affect, Normal Mood - Skin Skin Exam: Dry, Normal Color, Warm Assessment and Plan - Assessment and Plan (Free Text) Assessment: 73 year old female with a past medical history of hypertension, UC, dyslipidemia, glaucoma, DM, and peptic ulcer disease who presents with 5 days of progressively worsening left knee pain with swelling. Plan: Left knee pain and swelling- monarticular arthritis - 3 view radiograph shows there is joint space narrowing in the medial compartment. Meniscal calcifications are seen consistent with c hondrocalcinosis. Severe degenerative changes are seen in the patellofemoral joint. - Joint aspiration will be performed by ortho - Morphine 4 mg q4h PRN for severe pain discontinued. PO Ultram began today. - PT recommends TCU but patient wants to go home. - US of lower extremity performed, Negative for DVT DM II - ISS lispro (low) with fingerstick BG ACHS - holding metformin and glimeperide Ulcerative Colitis - Continue with home meds Peptic Ulcer Disease - Protonix 40 mg PO Dyslipidemia - Atorvastatin 20 DIN Glaucoma - Timolol OU PPX: DVT: Lovenox 40 mg SC GI: Protonix Dispo: Discharge planning. Patient seen, case reviewed and plan approved by Dr. Estrella. Denys Stewart, PGY-1 <Ana Estrella - Last Filed: 12/04/18 17:14> Objective - Vital Signs/Intake and Output Vital Signs (last 24 hours): Temp Pulse Resp BP Pulse Ox 98.5 F 74 18 122/85 93 L 12/04/18 15:25 12/04/18 15:25 12/04/18 15:25 12/04/18 15:25 12/04/18 15:25 - Medications Medications: Current Medications Amlodipine Besylate (Norvasc) 10 mg PO DAILY [facility] Last Admin: 12/04/18 09:16 Dose: 10 mg Atorvastatin Calcium (Lipitor) 20 mg PO DIN [facility] Last Admin: 12/03/18 17:12 Dose: 20 mg Carvedilol (Coreg) 25 mg PO BID [facility] Last Admin: 12/04/18 09:17 Dose: 25 mg Enoxaparin Sodium (Lovenox) 40 mg SC DAILY [facility]; Protocol Last Admin: 12/04/18 10:51 Dose: 40 mg Folic Acid (Folic Acid) 1 mg PO DAILY [facility] Last Admin: 12/04/18 09:17 Dose: 1 mg Insulin Human Lispro (Humalog Low) 0 units SC [facility]; Protocol Last Admin: 12/04/18 12:24 Dose: 2 unit Losartan Potassium (Cozaar) 100 mg PO DAILY [facility] Last Admin: 12/04/18 09:16 Dose: 100 mg Mercaptopurine (6-Mp) 100 mg PO DAILY [facility] Last Admin: 12/04/18 09:33 Dose: 100 mg Mesalamine (Asacol Hd 800mg) 1,600 mg PO TID [facility] Last Admin: 12/04/18 14:27 Dose: 1,600 mg Ondansetron HCl (Zofran Inj) 4 mg IVP Q6H PRN PRN Reason: Nausea/Vomiting Last Admin: 12/02/18 15:45 Dose: 4 mg Pantoprazole Sodium (Protonix Ec Tab) 40 mg PO ACB [facility] Last Admin: 12/04/18 08:12 Dose: 40 mg Timolol Maleate (Timoptic 0.5% Ophth Soln) 0 drop OU BID [facility] Last Admin: 12/04/18 09:18 Dose: 1 drop Torsemide (Demadex) 10 mg PO DAILY [facility] Last Admin: 12/04/18 09:17 Dose: 10 mg Tramadol HCl (Ultram) 50 mg PO TID [facility] Last Admin: 12/04/18 14:27 Dose: 50 mg Vitamin B Complex/Vit C/Folic Acid (Nephro-Jimmy) 1 tab PO 0800 [facility] Last Admin: 12/04/18 09:35 Dose: 1 tab - Labs Labs: 12/04/18 06:00 12/04/18 06:00 Attending/Attestation - Attestation I have personally seen and examined this patient.: Yes I have fully participated in the care of the patient.: Yes I have reviewed all pertinent clinical information, including history, physical exam and plan: Yes Notes (Text): 12/04/18 17:12 73 year old female with past medical history of hypertension, ulcerative colitis, dyslipidemia, diabetes and PUD who presented with complaint of left knee pain and swelling. Xray showed joint space narrowing in the medial compartment, meniscal calcifications consistent with chondrocalcinosis, and severe degenerative changes in the patellofemoral joint. LE doppler was negative. Orthopedics evaluation was appreciated. Patient is s/p joint aspiration; will follow up on studies. She reports pain has improved. Will transition morphine to po tramadol for d/c planning. PT recommended TCU which is refusing request ing to be discharged home. PT follow up was requested; consider home with home services. Ana Estrella MD Hospitalist.
[2018-12-05] MEDS: Multivitamin Vitamin B Complex (Nephro-Vite) Tab PO SCH (08:16)
[2018-12-05] MEDS: Insulin Lispro (humaLOG) LOW Coverage SC SCH ×2 (08:16→11:53)
[2018-12-05] MEDS: Pantoprazole 40 mg EC Tab PO SCH (08:16)
[2018-12-05 08:17] VITALS: RESP 18; TEMP 98.7; O2SAT 96
[2018-12-05 08:37] LABS: EOS % 0.7 % (1.5-5.0); GRAN # 3.62 (1.4-6.5); GRAN % 81.2 % (50.0-68.0); HEMOGLOBIN 10.8 g/dL (12.0-16.0); LYMPH # 0.4 (1.2-3.4); LYMPH % 8.5 % (22.0-35.0); MEAN CELL VOLUME 104.2 fl (80.0-105.0); MEAN CORPUSCULAR HEMOGLOBIN 34.8 pg (25.0-35.0); MEAN CORPUSCULAR HGB CONC 33.4 g/dl (31.0-37.0); MEAN PLATELET VOLUME 10.6 fl (7.0-11.0); MONO # 0.4 (0.1-0.6); MONO % 9.6 % (1.0-6.0); RBC 3.1 10^6/uL (3.5-6.1); RED CELL DISTRIBUTION WIDTH 14.8 % (11.5-14.5); WHITE BLOOD COUNT 4.5 10^3/uL (4.5-11.0)
[2018-12-05 09:23] LABS: ALB/GLOB RATIO 1.1 (1.1-1.8); ALBUMIN 4.2 g/dL (3.0-4.8); CALCIUM 9.9 mg/dL (8.4-10.5)
[2018-12-05] MEDS: Mesalamine 800 mg DR Tab PO SCH (09:24)
[2018-12-05] MEDS: Enoxaparin 40 mg Syringe SC SCH (09:25)
[2018-12-05 09:27] VITALS: BP 134/65; PULSE 90
--- NOTE | 2018-12-05 09:51 | CP.PCM.DIS ---
<Lydia Baptiste - Last Filed: 12/05/18 11:13> Provider - Provider Date of Admission: 12/02/18 13:37 Attending physician: Ana Estrella MD Consults: 12/02/18 13:25 Orthopedic Consult Routine Comment: lt. knee swelling/pain, unable to stand or walk Consulting Provider: Hever Pathak Consulting Physician: Hever Pathak Reason for Consult: lt. knee swelling/pain, unable to stand or walk 12/03/18 14:11 TCU [Evaluation for TRCU] Routine Comment: Physician Instructions: Reason For Exam: rehab Time Spent in preparation of Discharge (in minutes): 35 Hospital Course - Lab Results Lab Results: Micro Results 12/03/18 18:00 Knee - Right Gram Stain - Final 12/03/18 18:00 Knee - Right Wound Culture - Preliminary NO GROWTH AFTER 24 HOURS Most Recent Lab Values WBC 4.5 10^3/uL (4.5-11.0) D 12/05/18 08:27 RBC 3.10 10^6/uL (3.5-6.1) L 12/05/18 08:27 Hgb 10.8 g/dL (12.0-16.0) L 12/05/18 08:27 Hct 32.3 % (36.0-48.0) L 12/05/18 08:27 MCV 104.2 fl (80.0-105.0) 12/05/18 08:27 MCH 34.8 pg (25.0-35.0) 12/05/18 08:27 MCHC 33.4 g/dl (31.0-37.0) 12/05/18 08:27 RDW 14.8 % (11.5-14.5) H 12/05/18 08:27 Plt Count 406 10^3/uL (120.0-450.0) 12/05/18 08:27 MPV 10.6 fl (7.0-11.0) 12/05/18 08:27 Gran % 81.2 % (50.0-68.0) H 12/05/18 08:27 Lymph % (Auto) 8.5 % (22.0-35.0) L 12/05/18 08:27 [place] % (Auto) 9.6 % (1.0-6.0) H 12/05/18 08:27 Eos % (Auto) 0.7 % (1.5-5.0) L 12/05/18 08:27 Baso % (Auto) 0.0 % (0.0-3.0) 12/05/18 08:27 Gran # 3.62 (1.4-6.5) 12/05/18 08:27 Lymph # (Auto) 0.4 (1.2-3.4) L 12/05/18 08:27 [place] # (Auto) 0.4 (0.1-0.6) 12/05/18 08:27 Eos # (Auto) 0.0 (0.0-0.7) 12/05/18 08:27 Baso # (Auto) 0.00 K/mm3 (0.0-2.0) 12/05/18 08:27 ESR 99 mm/hr (0.0-20.0) H 12/02/18 11:10 Sodium 134 mmol/L (132-148) 12/05/18 08:27 Potassium 4.5 mmol/L (3.6-5.0) 12/05/18 08:27 Chloride 96 mmol/L (98-107) L 12/05/18 08:27 Carbon Dioxide 28 mmol/L (21-33) 12/05/18 08:27 Anion Gap 16 (10-20) 12/05/18 08:27 BUN 40 mg/dL (7-21) H 12/05/18 08:27 Creatinine 1.1 mg/dl (0.7-1.2) 12/05/18 08:27 Est GFR ( Amer) 59 12/05/18 08:27 Est GFR (Non-Af Amer) 48 12/05/18 08:27 POC Glucose (mg/dL) 161 mg/dL (65-110) H 12/05/18 06:41 Random Glucose 167 mg/dL (70-110) H 12/05/18 08:27 Uric Acid 4.5 mg/dL (2.5-6.2) 12/02/18 11:40 Calcium 9.9 mg/dL (8.4-10.5) 12/05/18 08:27 Magnesium 2.2 mg/dL (1.7-2.2) 12/05/18 08:27 Total Bilirubin 0.6 mg/dL (0.2-1.3) 12/05/18 08:27 AST 43 U/L (14-36) H 12/05/18 08:27 ALT 42 U/L (7-56) 12/05/18 08:27 Alkaline Phosphatase 48 U/L (38-126) 12/05/18 08:27 Total Protein 7.9 g/dL (5.8-8.3) 12/05/18 08:27 Albumin 4.2 g/dL (3.0-4.8) 12/05/18 08:27 Globulin 3.7 gm/dL 12/05/18 08:27 Albumin/Globulin Ratio 1.1 (1.1-1.8) 12/05/18 08:27 Fluid Type Synovial fluid 12/03/18 17:54 Synovial WBC 75536.0 /uL (0.0-150.0) H 12/03/18 17:54 Synovial RBC 101.0 /uL (0.0-0.0) H 12/03/18 17:54 Synovial Mononuclear 7.6 % (0-0) H 12/03/18 17:54 Synov Polymorphonuclear 92.4 % (0-0) H 12/03/18 17:54 Synovial Fluid Comment Yellow 12/03/18 17:54 - Hospital Course Hospital Course: This is a 73yo female with past medical history of HTN, dyslipidemia, DM, ulcerative colitis, PUD who was admitted for L knee pain and swelling. L Knee X ray was reviewed and showed joint space narrowing in the medial compartment, meniscal calcifications consistent with chondrocalcinosis, and severe degenerative changes in the patellofemoral joint. No evidence of DVT was noted on US. Consent was obtained for joint aspiration and intra-articular steroid injection of the left knee. Knee was sterilized using povidone-iodine. Lateral and medial approach were performed, but no fluid was successfully aspirated. 20 mg of Kenalog along with 2 ml of 2% Lidocaine was administered in the intra- articular space via medial approach. Patient tolerated procedure well with no complications. Patient was evaluated by ortho who recommended to follow up cytology and fluid analaysis for aspiration. Did not appear infectious etiology at this time, culture for synovial fluid was negative and patient had no sign of sepsis. Will follow up cytology. PT saw patient and recommended TCU but patient reports she would rather be dc home. Patient was given a prescription for Ultram as well as a rolling walker and outpatient physical therapy. Recommend for patient to follow up with ortho as outpatient as well as follow up with PMD, Dr. Louie. Patient reports her pain has improved and feels comfortable going home. She has a who is with her 24hrs and who can assist her at home. Patient along with family member at bedside was in agreement with plan for [facility]. All questions were answered in detail to patient satisfaction. - Date & Time of H&P Date of H&P: 12/02/18 Time of H&P: 17:00 Discharge Exam - Head Exam Head Exam: ATRAUMATIC, NORMAL INSPECTION, NORMOCEPHALIC - Eye Exam Eye Exam: Normal appearance, PERRL Pupil Exam: NORMAL ACCOMODATION - ENT Exam ENT Exam: Mucous Membranes Moist - Respiratory Exam Respiratory Exam: Clear to PA & Lateral, NORMAL BREATHING PATTERN, UNREMARKABLE. absent: Rhonchi, Wheezes, Respiratory Distress - Cardiovascular Exam Cardiovascular Exam: REGULAR RHYTHM, +S1, +S2. absent: Gallop, Rubs, Systolic Murmur - GI/Abdominal Exam GI & Abdominal Exam: Normal Bowel Sounds, Soft, Unremarkable. absent: Mass, Rebound, Rigid, Tenderness - Extremities Exam Extremities exam: normal capillary refill, normal inspection, pedal pulses present Additional comments: Mild L knee tenderness and swelling but able to bend knee - Neurological Exam Neurological exam: Alert, CN II-XII Intact, Oriented x3 - Skin Skin Exam: Dry, Intact, Warm Discharge Plan - Discharge Medications Prescriptions: Losartan [Cozaar] 100 mg PO DAILY #60 tab Mesalamine [Asacol HD 800mg] 1,600 mg PO TID #21 tcp - Follow Up Plan Condition: STABLE Disposition: HOME/ ROUTINE Instructions: Fatigue (DC), Acute Pain, Adult (DC), Muscle and Bone Pain (DC), Low Magnesium Level (DC) Additional Instructions: Please follow up with your PMD Dr. Louie within one week. Please follow up with Dr. Pathak within 1 week. His # is . Please take all home medications as prescribed. Please stop taking Exforg and Hydrochlorothiazide. You have also been given physical scripts for a rolling walker and Ultram as needed for pain. Please ambulate with assistance and caution. Please ambulate with rolling walker. You have been given a prescription for outpatient physical therapy. Cytology was performed and results are pending. Should symptoms worsen, please visit nearest emergency department. Referrals: Hever Pathak MD [Staff Provider] - <Ana Estrella - Last Filed: 12/05/18 12:41> Provider - Provider Date of Admission: 12/02/18 13:37 Attending physician: Ana Estrella MD Consults: 12/02/18 13:25 Orthopedic Consult Routine Comment: lt. knee swelling/pain, unable to stand or walk Consulting Provider: Hever Pathak Consulting Physician: Hever Pathak Reason for Consult: lt. knee swelling/pain, unable to stand or walk 12/03/18 14:11 TCU [Evaluation for TRCU] Routine Comment: Physician Instructions: Reason For Exam: rehab Hospital Course - Lab Results Lab Results: Micro Results 12/03/18 18:00 Knee - Right Gram Stain - Final 12/03/18 18:00 Knee - Right Wound Culture - Preliminary NO GROWTH AFTER 24 HOURS Most Recent Lab Values WBC 4.5 10^3/uL (4.5-11.0) D 12/05/18 08:27 RBC 3.10 10^6/uL (3.5-6.1) L 12/05/18 08:27 Hgb 10.8 g/dL (12.0-16.0) L 12/05/18 08:27 Hct 32.3 % (36.0-48.0) L 12/05/18 08:27 MCV 104.2 fl (80.0-105.0) 12/05/18 08:27 MCH 34.8 pg (25.0-35.0) 12/05/18 08:27 MCHC 33.4 g/dl (31.0-37.0) 12/05/18 08:27 RDW 14.8 % (11.5-14.5) H 12/05/18 08:27 Plt Count 406 10^3/uL (120.0-450.0) 12/05/18 08:27 MPV 10.6 fl (7.0-11.0) 12/05/18 08:27 Gran % 81.2 % (50.0-68.0) H 12/05/18 08:27 Lymph % (Auto) 8.5 % (22.0-35.0) L 12/05/18 08:27 [place] % (Auto) 9.6 % (1.0-6.0) H 12/05/18 08:27 Eos % (Auto) 0.7 % (1.5-5.0) L 12/05/18 08:27 Baso % (Auto) 0.0 % (0.0-3.0) 12/05/18 08:27 Gran # 3.62 (1.4-6.5) 12/05/18 08:27 Lymph # (Auto) 0.4 (1.2-3.4) L 12/05/18 08:27 [place] # (Auto) 0.4 (0.1-0.6) 12/05/18 08:27 Eos # (Auto) 0.0 (0.0-0.7) 12/05/18 08:27 Baso # (Auto) 0.00 K/mm3 (0.0-2.0) 12/05/18 08:27 ESR 99 mm/hr (0.0-20.0) H 12/02/18 11:10 Sodium 134 mmol/L (132-148) 12/05/18 08:27 Potassium 4.5 mmol/L (3.6-5.0) 12/05/18 08:27 Chloride 96 mmol/L (98-107) L 12/05/18 08:27 Carbon Dioxide 28 mmol/L (21-33) 12/05/18 08:27 Anion Gap 16 (10-20) 12/05/18 08:27 BUN 40 mg/dL (7-21) H 12/05/18 08:27 Creatinine 1.1 mg/dl (0.7-1.2) 12/05/18 08:27 Est GFR ( Amer) 59 12/05/18 08:27 Est GFR (Non-Af Amer) 48 12/05/18 08:27 POC Glucose (mg/dL) 246 mg/dL (65-110) H 12/05/18 11:09 Random Glucose 167 mg/dL (70-110) H 12/05/18 08:27 Uric Acid 4.5 mg/dL (2.5-6.2) 12/02/18 11:40 Calcium 9.9 mg/dL (8.4-10.5) 12/05/18 08:27 Magnesium 2.2 mg/dL (1.7-2.2) 12/05/18 08:27 Total Bilirubin 0.6 mg/dL (0.2-1.3) 12/05/18 08:27 AST 43 U/L (14-36) H 12/05/18 08:27 ALT 42 U/L (7-56) 12/05/18 08:27 Alkaline Phosphatase 48 U/L (38-126) 12/05/18 08:27 Total Protein 7.9 g/dL (5.8-8.3) 12/05/18 08:27 Albumin 4.2 g/dL (3.0-4.8) 12/05/18 08:27 Globulin 3.7 gm/dL 12/05/18 08:27 Albumin/Globulin Ratio 1.1 (1.1-1.8) 12/05/18 08:27 Fluid Type Synovial fluid 12/03/18 17:54 Synovial WBC 67992.0 /uL (0.0-150.0) H 12/03/18 17:54 Synovial RBC 101.0 /uL (0.0-0.0) H 12/03/18 17:54 Synovial Mononuclear 7.6 % (0-0) H 12/03/18 17:54 Synov Polymorphonuclear 92.4 % (0-0) H 12/03/18 17:54 Synovial Fluid Comment Yellow 12/03/18 17:54 Attending/Attestation - Attestation I have personally seen and examined this patient.: Yes I have fully participated in the care of the patient.: Yes I have reviewed all pertinent clinical information, including history, physical exam and plan: Yes Notes (Text): 12/05/18 12:35 73 year old female with past medical history of hypertension, ulcerative colitis, dyslipidemia, diabetes and PUD who presented with complaint of left knee pain and swelling. Xray showed joint space narrowing in the medial compartment, meniscal calcifications consistent with chondrocalcinosis, and severe degenerative changes in the patellofemoral joint. LE doppler was negative. Orthopedics evaluation was appreciated. Patient is s/p joint aspiration with improvement of pain and ROM. She was seen by PT who recommended TCU vs home with 24 hr assistance. Patient refused TCU and feels she has assistance with at home. Follow up with pmd. Ana Estrella MD Hospitalist.
== END 2018-12-05 12:55 | disposition home or self-care (01) | DRG 554 ==
LOC: ED 09:14 → ERH 13:37 → 5RSO 22:15
PROVIDERS: ADMIT Internal Medicine; ATTEND Internal Medicine
PROC: 3E0U33Z Introduction of Anti-inflammatory into Joints, Percutaneous Approach (ICD-10-PCS; 2018-12-02)
PROC: 3E0U3BZ Introduction of Anesthetic Agent into Joints, Percutaneous Approach (ICD-10-PCS; 2018-12-02)
PROC: 0S9D3ZX Drainage of Left Knee Joint, Percutaneous Approach, Diagnostic (ICD-10-PCS; principal; 2018-12-03)
PROC: 3E0U33Z Introduction of Anti-inflammatory into Joints, Percutaneous Approach (ICD-10-PCS; 2018-12-03)
PROC: 3E0U3BZ Introduction of Anesthetic Agent into Joints, Percutaneous Approach (ICD-10-PCS; 2018-12-03)
DX: M17.12 Unilateral primary osteoarthritis, left knee (principal); K51.90 Ulcerative colitis, unspecified, without complications; M11.262 Other chondrocalcinosis, left knee; I10 Essential (primary) hypertension; E11.9 Type 2 diabetes mellitus without complications; M25.462 Effusion, left knee; E83.42 Hypomagnesemia; E78.5 Hyperlipidemia, unspecified; H40.9 Unspecified glaucoma; Z91.81 History of falling; Z87.11 Personal history of peptic ulcer disease; Z87.891 Personal history of nicotine dependence